=== PATIENT | female | born 1955 | race Hispanic/Latino ===

== ENCOUNTER 2017-11-03 06:53 | Day surgery (SDC) | payer BC ==
[~2017-11-03] VITALS: Ht 147.3 cm; Wt 68.6 kg
[~2017-11-03 06:53] MED LIST: SODIUM CHLORIDE 0.9% 1000ML 1,000 ML IV ONE
[2017-11-03 07:47] VITALS: BP 125/80
[2017-11-03] MEDS ORDERED: MESA1.2T PO (07:52)
[2017-11-03] MEDS ORDERED: METF10004 PO (07:52)
[2017-11-03] MEDS ORDERED: SITA50TA PO (07:52)
[2017-11-03] MEDS ORDERED: LISI2.5T2 PO (07:52)
[2017-11-03] MEDS ORDERED: SIMV10TA6 PO (07:52)
[2017-11-03] MEDS ORDERED: ACET-66 PO (07:52)
[2017-11-03] MEDS ORDERED: ESOM40CA54 PO (07:52)
[2017-11-03] MEDS ORDERED: PROPOFOL 10 MG/ML 20ML VIAL IV ONE ×2 (07:56→08:16)
== END 2017-11-03 09:00 | disposition home or self-care (01) ==
LOC: DAH 06:53
PROVIDERS: ATTEND Internal Medicine Gastroenterology
DX: K21.9 Gastro-esophageal reflux disease without esophagitis (principal); K29.70 Gastritis, unspecified, without bleeding; K51.00 Ulcerative (chronic) pancolitis without complications; K57.30 Diverticulosis of large intestine without perforation or abscess without bleeding; I10 Essential (primary) hypertension; E78.5 Hyperlipidemia, unspecified; E11.9 Type 2 diabetes mellitus without complications; E66.9 Obesity, unspecified; Z68.29 Body mass index [BMI] 29.0-29.9, adult; Z79.899 Other long term (current) drug therapy; Z91.09 Other allergy status, other than to drugs and biological substances
CPT/HCPCS: 43239; 45380; 82948 ×2; 88305; 88312; A4606; J2704 ×2; J7030

== ENCOUNTER → 2018-12-15 | Outpatient (CLI) | payer OTHER ==
[~2018-12-15] MED LIST changes: +ACET-66 PO; +ESOM40CA54 PO; +LISI2.5T2 PO; +MESA1.2T PO; +METF-446 PO; +SIMV10TA6 PO; +SITA50TA PO; -SODIUM CHLORIDE 0.9% 1000ML 1,000 ML IV ONE
== END | disposition home or self-care (01) ==
LOC: OIH 14:47
PROVIDERS: ATTEND Family Medicine
DX: Z13.6 Encounter for screening for cardiovascular disorders (principal)
CPT/HCPCS: 75571